=== PATIENT | male | born 1985 ===

== ENCOUNTER 2018-08-23 05:35 | Day surgery (SDC) | payer OTHER ==
[~2018-08-23] VITALS: Ht 175.3 cm; Wt 75.7 kg
[2018-08-23] VITALS (13 sets, daily range): BP systolic 105–129; BP diastolic 62–87
[~2018-08-23 05:35] MED LIST: NKM
[2018-08-23] MEDS ORDERED: ceFAZolin 1gm IVPB IVPB ONE ×2 (06:00)
[2018-08-23] MEDS ORDERED: oxyCONTIN 20mg tab ORAL ONE (06:00)
[2018-08-23] MEDS ORDERED: celeBREX 200mg Cap **SURGERY PATIENTS ONLY ORAL ONE (06:00)
[2018-08-23] MEDS ORDERED: ADDERAL20 MG ORAL (06:19)
[2018-08-23] MEDS ORDERED: EPINEPHrine 1mg/1ml Amp ONE (06:59)
[2018-08-23] MEDS ORDERED: Ketorolac 30mg Inj ONE (06:59)
[2018-08-23] MEDS ORDERED: Kenalog-40 1ml Vial ONE (06:59)
[2018-08-23] MEDS ORDERED: Bupivacaine w/Epi 0.25% 30ml Vial INJ ONE (07:00)
[2018-08-23] MEDS ORDERED: Lidocaine 1% 10mg/ml/EPI 0.01mg/ml 50ml INJ ONE (07:00)
[2018-08-23] MEDS ORDERED: Bupivacaine 0.25% Inj 30ml INJ ONE (07:00)
[2018-08-23] MEDS ORDERED: Duramorph PF 5mg/10ml amp ONE (07:00)
[2018-08-23] MEDS ORDERED: Sterile Water Irrig 1000ml IRRIG ONE (07:30)
[2018-08-23] MEDS ORDERED: LR 1000ml ONE (07:30)
[2018-08-23] MEDS ORDERED: Midazolam 2mg/2ml Inj ONE (07:39)
[2018-08-23] MEDS ORDERED: fentaNYL 100 mcg/2 mL IV ONE (07:39)
--- NOTE | 2018-08-23 07:39 | Pre-Procedure Note/Attestation ---
Pre-Procedure Note/Attestation Complete Prior to Procedure Planned Procedure: right Procedure Narrative: knee diagnostic arthroscopy, possible synovectomy Indications for Procedure Pre-Operative Diagnosis: right knee internal derangement Attestation I attest that I discussed the nature of the procedure; its benefits; risks and complications; and alternatives (and the risks and benefits of such alternatives ), prior to the procedure, with the patient (or the patient's legal public service representative). I attest that, if there was a reasonable possibility of needing a blood transfusion, the patient (or the patient's legal public service representative) was given the [facility] standardized written summary, pursuant to the [place] Blood Safety Act ([place] Health and Safety Code # 1645, as amended). I attest that I re-evaluated the patient just prior to the surgery and that there has been no change in the patient's H&P, except as documented below: Jacinto Sotomayor MD Aug 23, 2018 07:39
[2018-08-23] MEDS ORDERED: NS Irrig 4000ml IRRIG ONE (07:40)
[2018-08-23] MEDS ORDERED: Duramorph PF 5mg/10ml amp IV ONE (07:40)
[2018-08-23] MEDS ORDERED: HYDROcodone/Acetamin 5/325 tab ORAL PRN (07:45)
[2018-08-23] MEDS ORDERED: HYDROmorphone 1mg/ml Carpuject SUBQ PRN (07:45)
[2018-08-23] MEDS ORDERED: D5 1/2NS 1,000 ML IV SCH (07:45)
[2018-08-23] MEDS ORDERED: Tylenol #3 tab (300mg/30mg) ORAL PRN (07:45)
[2018-08-23] MEDS ORDERED: Propofol 200mg/20ml IV ONE (08:00)
[2018-08-23] MEDS ORDERED: Metoclopramide 10mg/2ml Inj ONE (08:00)
[2018-08-23] MEDS ORDERED: Lidocaine 1% MPF 10mg/ml 5ml ONE (08:00)
--- NOTE | 2018-08-23 08:12 | Anethesia Preoperative Eval ---
Anesthesia Pre-op PMH/ROS General Date of Evaluation: Aug 23, 2018 Time of Evaluation: 07:00 Anesthesiologist: brittny ASA Score: ASA 2 Mallampati Score Class I : Soft palate, uvula, fauces, pillars visible Class II: Soft palate, uvula, fauces visible Class III: Soft palate, base of uvula visible Class IV: Only hard plate visible Mallampati Classification: Class II Surgeon: nadja Diagnosis: knee pain Surgical Procedure: right knee scope Anesthesia History: none Social History: smoking Family History: no anesthesia problems Allergies: Coded Allergies: No Known Allergies (Unverified , 08/22/18) Medications: see eMAR Patient NPO?: Yes NPO Date: Aug 23, 2018 NPO Time: 00:01 Past Medical History Cardiovascular: Denies: HTN, CAD, NM, valve dz, arrhythmia, other Pulmonary: Reports: other - smoking; Denies: asthma, COPD, JACQUES Gastrointestinal/Genitourinary: Denies: GERD, CRI, ESRD, other Neurologic/Psychiatric: Denies: dementia, CVA, depression/anxiety, TIA, other Endocrine: Denies: DM, hypothyroidism, steroids, other HEENT: Denies: cataract (L), cataract (R), glaucoma, KAW (L), KAW (R), other Hematology/Immune: Denies: anemia, DVT, bleeding disorder, other Musculoskeletal/Integumentary: Denies: OA, RA, DJD, DDD, edema, other PSxH Narrative: none Anesthesia Pre-op Phys. Exam Physician Exam Last Vital Signs Date Time Temp Pulse Resp B/P (MAP) Pulse Ox O2 Delivery O2 Flow Rate FiO2 08/23/18 06:16 97.8 53 20 123/73 97 Room Air Constitutional: NAD Neurologic: CN 2-12 intact Cardiovascular: RRR Respiratory: CTA Gastrointestinal: S/NT/ND Airway Exam Mallampati Classification 2 Mallampati Score: Class II ROM: full Dentures: no upper, no lower Anesthesia Pre-op A/P Studies Pre-op Studies: EKG - sr Risk Assessment & Plan Assessment: denies changes in health Plan: general Pre-Antibiotics Drug: ancef Given Within 1 Hr of Incision: Yes Time Given: 07:45 Renee Oden CRNA Aug 23, 2018 08:12
[2018-08-23] MEDS ORDERED: fentaNYL 100 mcg/2 mL IV PRN (08:15)
--- NOTE | 2018-08-23 08:53 | Immediate Post-Op Evaluation ---
Immediate Post-Op Evalulation Immediate Post-Op Evalulation Procedure: right knee scope Date of Evaluation: Aug 23, 2018 Time of Evaluation: 08:52 IV Fluids: 600 Blood Pressure Systolic: 122 Blood Pressure Diastolic: 68 Pulse Rate: 55 Respiratory Rate: 14 O2 Sat by Pulse Oximetry: 100 Temperature (Fahrenheit): 97.8 Nausea: No Vomiting: No Complications none Patient Status: awake, reacts, patent Hydration Status: adequate Drug: ancef Given Within 1 Hr of Incision: Yes Time Given: 08:00 Renee Oden CRNA Aug 23, 2018 08:53
--- NOTE | 2018-08-23 14:34 | 48 Hour Post Anesthesia Eval ---
Post Anesthesia Evaluation Procedure: right knee scope Date of Evaluation: Aug 23, 2018 Time of Evaluation: 14:34 Blood Pressure Systolic: 129 0: 87 Pulse Rate: 64 Respiratory Rate: 14 O2 Sat by Pulse Oximetry: 99 Airway: patent Nausea: No Vomiting: No Hydration Status: adequate Cardiopulmonary Status: stable Mental Status/LOC: patient returned to baseline Follow-up Care/Observations: na Post-Anesthesia Complications: none Follow-up care needed: N/A Renee Oden CRNA Aug 23, 2018 14:34
--- NOTE | 2018-08-26 08:15 | Operative Note - Dictated ---
DATE OF OPERATION: 08/23/2018 PREOPERATIVE DIAGNOSES: 1. Right knee internal derangement secondary possible hypertrophic fat pad syndrome versus periganglion cyst. 2. Stress reaction, proximal tibia at insertion of ACL. POSTOPERATIVE DIAGNOSES: 1. Longitudinal tear, partial ACL tear. 2. Hypertrophic fat pad syndrome/periarticular ganglion cyst. PROCEDURE: 1. Right knee diagnostic arthroscopy. 2. Right knee medial, lateral, patellofemoral synovectomy, excision of fat pad. SURGEON: Jacinto Sotomayor M.D. ANESTHESIA: MAC. INDICATION FOR PROCEDURE: The patient is a pleasant gentleman who has had continued right knee pain. He had MRI, which showed a possible sprain of the ACL along with a periarticular cyst. He had continued difficulty with activities of living, elected to undergo right knee arthroscopy. Risks, limitations, expectations, and complications of procedure were discussed in detail. All questions were addressed. DESCRIPTION OF PROCEDURE: After informed consent was obtained, the patient was brought to the operating room. The patient was placed under anesthesia. Ancef was administered. Time-out was performed. Right leg was prepped and draped in a sterile manner. Inferolateral stab incision was then made. Trocar was introduced into the knee joint with some resistance only going through the lateral gutter. It was difficult to visualize patellofemoral compartment. Medial compartment was entered. Medial working portal was established. Medial meniscus probe noted to be intact along the convergence of medial compartment. There was hypertrophic fat pad in the anterior portion of the medial compartment. Working portal was established and the synovectomy, excision of the fat pad in the anterior portion of the medial compartment was completed. Intercondylar notch was entered. There was a longitudinal split along the center of the acl was present who the length of the ligament was intact. Lateral compartment was entered and free from the meniscal chondral damage. Camera was then repositioned in the patellofemoral compartment. Excision of the fat pad was completed. The camera was then placed in the medial working portal and synovectomy and excision of the fat pad was completed along the lateral gutter. Once that was done, the instruments were removed. Portal sites were closed with 3-0 Monocryl sutures. Steri-Strips and a sterile dressing were applied. The patient was awoken and taken to recovery room with stable vital signs. ESTIMATED BLOOD LOSS: None. COMPLICATIONS: None. SPECIMENS: None. IMPLANTS: None. Jacinto Sotomayor M.D. DR: CLARISSA JOB#: [id number] CC: ANN
--- NOTE | 2018-08-26 21:04 | Operative Note - PDOC ---
Operative Note Operative Note Pre-op Diagnosis: right knee internal derangement Procedure: see op report Post-op Diagnosis: same as pre-op plus Operative Findings: consistent w/pre-op dx studies Anesthesia: MAC Implant(s) used?: No Jacinto Sotomayor MD Aug 26, 2018 21:04
== END 2018-08-23 11:00 | disposition home or self-care (01) ==
LOC: SUR 05:35
DX: S83.511A Sprain of anterior cruciate ligament of right knee, initial encounter (principal); M79.4 Hypertrophy of (infrapatellar) fat pad; Z87.891 Personal history of nicotine dependence; X58.XXXA Exposure to other specified factors, initial encounter; Y92.9 Unspecified place or not applicable; Z79.899 Other long term (current) drug therapy; E66.3 Overweight; Z68.24 Body mass index [BMI] 24.0-24.9, adult
CPT/HCPCS: 29876; 97161; J0171; J0690; J1885; J2250; J2405; J2704; J2765; J3010; J3301; J3490; 94003; 94150